=== PATIENT | female | born 1985 | race African-American/Black ===

== ENCOUNTER 2019-03-24 11:54 | Emergency (ER) | payer MEDICAID ==
[~2019-03-24] VITALS: Ht 172.7 cm; Wt 73.0 kg
[2019-03-24] MEDS ORDERED: ACETAMINOPHEN 500MG TABLET PO ONE (13:00)
[2019-03-24 14:16] VITALS: BP 140/77
== END 2019-03-24 14:18 | disposition home or self-care (01) ==
LOC: ER 11:54
DX: M25.561 Pain in right knee (principal); R20.0 Anesthesia of skin; J45.909 Unspecified asthma, uncomplicated
CPT/HCPCS: 73564; 99283

== ENCOUNTER 2021-12-17 22:17 | Emergency (ER) | payer MEDICAID, OTHER ==
[~2021-12-17] VITALS: Ht 167.6 cm; Wt 80.1 kg
[2021-12-18] MEDS ORDERED: HYDROCODONE/ACETAMINOPHEN 5/325MG TABLET PO ONE (00:15)
[2021-12-18] MEDS ORDERED: TETRACAINE 0.5% OPHTH DROPS 4ML RIGHTEYE ONE (00:15)
[2021-12-18] MEDS ORDERED: FLUORESCEIN SODIUM 1MG/STRIP RIGHTEYE ONE (00:15)
[2021-12-18 00:31] VITALS: BP 169/96
[2021-12-18] MEDS ORDERED: OFLO5DRO3 RIGHTEYE (01:19)
== END 2021-12-18 01:35 | disposition home or self-care (01) ==
LOC: ER 22:17
DX: S01.111A Laceration without foreign body of right eyelid and periocular area, initial encounter (principal); H20.9 Unspecified iridocyclitis; Y00.XXXA Assault by blunt object, initial encounter; Y07.59 Other non-family member, perpetrator of maltreatment and neglect; Y93.89 Activity, other specified; Y92.89 Other specified places as the place of occurrence of the external cause
CPT/HCPCS: 99283